=== PATIENT | male | born 1990 | race Asian ===

== ENCOUNTER 2017-05-13 11:40 | Outpatient (CLI) | payer OTHER ==
--- NOTE | 2017-05-13 20:51 | XRAY Report ---
DATE OF SERVICE: 05/13/2017 BILATERAL ACROMIOCLAVICULAR JOINTS: 05/13/2017 CLINICAL INDICATION: Sprain, pain left side. Frontal views of the clavicles were obtained with and without weights. The acromioclavicular joints are normal and symmetric bilaterally, and demonstrate no change with weights. No fracture is identified. IMPRESSION: Normal AC joints. TD: 05/13/2017 21:50
== END 2017-05-13 11:41 | disposition home or self-care (01) ==
LOC: DI 11:40
PROVIDERS: ATTEND Family Medicine
DX: S43.52XA Sprain of left acromioclavicular joint, initial encounter (principal)
CPT/HCPCS: 73050

== ENCOUNTER 2019-12-15 12:40 | Outpatient (CLI) | payer OTHER | END 2019-12-15 12:41 | disposition home or self-care (01) | LOC: COV 12:40 | PROVIDERS: ATTEND Family Medicine | DX: Z20.828 Contact with and (suspected) exposure to other viral communicable diseases (principal) ==

== ENCOUNTER 2020-02-29 18:38 | Outpatient (CLI) | payer OTHER | END 2020-02-29 18:39 | disposition home or self-care (01) | LOC: COV 18:38 | PROVIDERS: ATTEND Family Medicine | DX: Z20.828 Contact with and (suspected) exposure to other viral communicable diseases (principal) ==

== ENCOUNTER 2020-05-02 15:35 | Outpatient (CLI) | payer OTHER ==
--- NOTE | 2020-05-02 16:01 | XRAY Report ---
PROCEDURE: Shoulder 3 View RT INDICATIONS: RT SHOULDER PAIN TECHNIQUE: 3 views of the shoulder were acquired. COMPARISON: None. FINDINGS: Bones: No fractures. There is widening of the acromioclavicular interval to 9 mm, and the clavicle i s subluxed superiorly by roughly 8 mm.. No suspicious bony lesions. Visualized ribs appear intact. Soft tissues: No suspicious soft tissue calcifications. IMPRESSION: Acromial clavicular separation. Reviewed by: Alexandru Quiroga MD on 05/02/2020 3:59 PM PST Approved by: Alexandru Quiroga MD on 05/02/2020 3:59 PM PST Station ID: [id number]
== END 2020-05-02 15:36 | disposition home or self-care (01) ==
LOC: DI 15:35
PROVIDERS: ATTEND Physician Assistant Medical
DX: S43.101A Unspecified dislocation of right acromioclavicular joint, initial encounter (principal)

== ENCOUNTER 2020-11-16 15:51 | Outpatient (CLI) | payer OTHER | END 2020-11-16 15:52 | disposition home or self-care (01) | LOC: COV 15:51 | PROVIDERS: ATTEND Family Medicine | DX: Z20.822 Contact with and (suspected) exposure to COVID-19 (principal) ==